=== PATIENT | female | born 1945 | race Caucasian/White ===

== ENCOUNTER 2017-09-13 14:22 | Inpatient (IN) | payer MEDICAID ==
[~2017-09-13] VITALS: Ht 152.4 cm; Wt 42.8 kg
[~2017-09-13 14:22] MED LIST: AMLODIPINE BESYL5 M1 PO; ASPIR 8181 MG PO; CLINDAMYCIN HC300 MG PO; GLU5 PO; LAC PO; LEVAQUIN LEVA-750 M1 PO; METFORMIN HCL1000 MG PO; SIMVASTATIN10 M1 PO; ZES10 PO; [UNRECOGNIZED DRUG - OTHER]
[2017-09-13 16:08] LABS: BASOPHIL % 0.3 % (0-2); PLATELET COUNT 181 x10^3mcL (130-400); RED CELL DISTRIBUTION WIDTH 13.2 % (11.5-14.5)
[2017-09-13 16:18] LABS: CALCIUM 9.9 mg/dL (8.5-10.1); CHLORIDE SERUM 108 mmol/L (98-107); CREATININE SERUM 0.9 mg/dL (0.6-1.0); GLUCOSE SERUM 64 mg/dL (74-106); SODIUM SERUM 145 mmol/L (136-145)
[2017-09-13 16:24] LABS: ALBUMIN 3.9 g/dL (3.4-5.0); ALKALINE PHOSPHATASE 75 U/L (46-116); ALT/SGPT 18 U/L (14-59); AST/SGOT 13 U/L (15-37); BILIRUBIN TOTAL 0.39 mg/dL (0.20-1.00); LIPASE 107 IU/L (73-393); TOTAL PROTEIN, SERUM 7.7 g/dL (6.4-8.2)
[2017-09-13 16:29] LABS: FREE T4 1.03 ng/dL (0.76-1.46); FREE THYROXINE INDEX 2.1 ug/dL (1.4-4.5); T4(THYROXINE) 5.9 ug/dL (4.7-13.3)
[2017-09-13 16:36] LABS: T3 TOTAL 0.91 ng/mL
[2017-09-13 16:37] LABS: HDL CHOLESTEROL 67 mg/dL (40-60)
[2017-09-13 16:57] LABS: microscopic required? YES; urine erythrocyte TRACE (NEGATIVE)
[2017-09-13 17:02] LABS: TRIGLYCERIDES 63 mg/dL (<150)
[2017-09-13 17:03] LABS: CHOLESTEROL 147 mg/dL (<200); CHOLESTEROL/HDL RATIO 2.2
[2017-09-13 17:16] LABS: ERYTHROCYTE SED RATE 26 mm/hr (0-30)
[2017-09-13 17:47] LABS: MAGNESIUM 1.9 mg/dL (1.8-2.4); PHOSPHOROUS 4.1 mg/dL (2.5-4.9)
[2017-09-13 20:05] VITALS: BP 179/68
[2017-09-13 20:10] VITALS: Ht 152.4 cm; Wt 42.8 kg
[2017-09-14 05:42] LABS: PLATELET COUNT 179 x10^3mcL (130-400); RED CELL DISTRIBUTION WIDTH 13.4 % (11.5-14.5)
[2017-09-14 05:43] VITALS: BP 120/50
[2017-09-14 05:52] LABS: BASOPHIL % 0 % (0-2)
[2017-09-14 05:57] LABS: CALCIUM 8.4 mg/dL (8.5-10.1); CARBON DIOXIDE 29.2 mmol/L (21-32); CHLORIDE SERUM 109 mmol/L (98-107); CREATININE SERUM 0.8 mg/dL (0.6-1.0); MAGNESIUM 1.6 mg/dL (1.8-2.4); PHOSPHOROUS 4.4 mg/dL (2.5-4.9); POTASSIUM SERUM 4.2 mmol/L (3.5-5.1); SODIUM SERUM 145 mmol/L (136-145)
[2017-09-14 06:04] LABS: GLUCOSE SERUM 49 mg/dL (74-106)
[2017-09-14 09:30] VITALS: BP 122/49
[2017-09-14 14:06] VITALS: BP 117/43
[2017-09-14 17:06] VITALS: BP 139/56
[2017-09-14 21:03] VITALS: BP 143/56
[2017-09-15 05:22] VITALS: BP 115/48
[2017-09-15 05:35] LABS: BASOPHIL % 0.3 % (0-2); PLATELET COUNT 171 x10^3mcL (130-400); RED CELL DISTRIBUTION WIDTH 12.9 % (11.5-14.5)
[2017-09-15 05:49] LABS: CALCIUM 8.7 mg/dL (8.5-10.1); CARBON DIOXIDE 28.7 mmol/L (21-32); CHLORIDE SERUM 104 mmol/L (98-107); GLUCOSE SERUM 166 mg/dL (74-106); HDL CHOLESTEROL 53 mg/dL (40-60); POTASSIUM SERUM 3.7 mmol/L (3.5-5.1); SODIUM SERUM 141 mmol/L (136-145); TRIGLYCERIDES 77 mg/dL (<150)
[2017-09-15 05:56] LABS: CHOLESTEROL 123 mg/dL (<200); CHOLESTEROL/HDL RATIO 2.3
[2017-09-15 08:42] VITALS: BP 114/42
[2017-09-15 11:17] LABS: ERYTHROCYTE SED RATE 16 mm/hr (0-30)
== END 2017-09-15 12:35 | disposition left against medical advice (07) | DRG 48 ==
LOC: ED 14:22 → DU 16:25 → MU 16:25 → DU 19:45
PROVIDERS: General Practice; Specialist
DX: G90.8 Other disorders of autonomic nervous system (principal); E11.65 Type 2 diabetes mellitus with hyperglycemia; E11.319 Type 2 diabetes mellitus with unspecified diabetic retinopathy without macular edema; I16.0 Hypertensive urgency; Z68.1 Body mass index [BMI] 19.9 or less, adult; F17.210 Nicotine dependence, cigarettes, uncomplicated; Z79.84 Long term (current) use of oral hypoglycemic drugs
CPT/HCPCS: 82962; 83880; 84439; J1815; J2270; J2405; J3475; J3490; J7030; Q0092